=== PATIENT | female | born 2000 | race Caucasian/White ===

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

== ENCOUNTER 2022-06-27 17:43 | Emergency (ER) | payer OTHER ==
[2022-06-27] MEDS ORDERED: Tetracaine 0.5% PF 4 ML BOT ONE (18:49)
[2022-06-27] MEDS ORDERED: Fluorescein Opthalmic Strip ONE (18:49)
[2022-06-27] MEDS ORDERED: Erythromycin Base 0.5% Ophth Oint 3.5 gm Tube ONE (19:21)
== END 2022-06-27 19:40 | disposition home or self-care (01) ==
LOC: MADERS 17:43
DX: H10.9 Unspecified conjunctivitis (principal)
CPT/HCPCS: 99283

== ENCOUNTER 2022-08-08 14:42 | Emergency (ER) | payer OTHER | END 2022-08-08 15:01 | disposition home or self-care (01) | LOC: MADERS 14:42 | DX: L30.9 Dermatitis, unspecified (principal); F17.290 Nicotine dependence, other tobacco product, uncomplicated | CPT/HCPCS: 99282 ==

== ENCOUNTER 2022-12-27 12:27 | Emergency (ER) | payer OTHER ==
[2022-12-27] MEDS ORDERED: Ondansetron PF 4 MG/2 ML Vial ONE (13:06)
[2022-12-27] MEDS ORDERED: Sodium Chloride 0.9% 1,000 ML ONE (13:06)
[2022-12-27 13:09] LABS: #Basophils 0.1 thou/uL (0.0-0.2); #Eosinphils 0.1 thou/uL (0.0-0.7); #Lymphocytes 0.8 thou/uL (1.20-3.40); #Monocytes 0.2 thou/uL (0.11-0.59); #Neutrophils 9.3 thou/uL (1.40-6.50); %Basophils 0.6 % (0.0-1.0); %Eosinophils 0.5 % (0.0-10.0); %Lymphocytes 7.2 % (21.0-51.0); %Monocytes 2.3 % (0.0-10.0); %Neutrophils 89.4 % (42.0-75.0); Hematocrit 40.1 % (36.0-47.0); Hemoglobin 13.1 g/dL (12.0-16.0); Mean Corpuscular HGB CONC 32.6 g/dL (32.0-36.0); Mean Corpuscular Hemoglobin 28.5 pg (27.0-31.0); Mean Corpuscular Volume 87.4 fl (78.0-98.0); Mean Platelet Volume 8.6 fL (7.4-10.4); Platelet Count 307 10x3/uL (130-400); RBC Distribution Width 13.8 % (11.5-14.5); Red Blood Cell (RBC) Count 4.59 mill/uL (4.20-5.40); White Blood Cell (WBC) Count 10.4 10x3/uL (4.8-10.8)
[2022-12-27 13:17] LABS: Bilirubin Negative (Negative); Blood, Urine Negative (Negative); Glucose, Urine (Dipstick) Negative (Negative); Ketone, Urine 40 mg/dL (Negative); Leukocyte Trace (Negative); Nitrite Negative (Negative); Protein, Urine (Dipstick) Trace mg/dL (Neg-Trace); Specific Gravity, Urine 1.025 (1.005-1.030); Urobilinogen 0.2 mg/dL (Less than 2); pH, Urine 5.5 (5.0-9.0)
[2022-12-27 13:18] LABS: Clarity Slightly Cloudy (Clear); RBC/HPF 0-3 HPF (0-3)
[2022-12-27 13:19] LABS: Bacteria/HPF 1+ HPF (None Seen); CAUTI Indications for Culture Pelvic or flank pain
[2022-12-27 13:21] LABS: Urine Culture Reflex No No
[2022-12-27 13:28] LABS: ALT (SGPT) 13 U/L (8-55); AST (SGOT) 15 U/L (5-34); Albumin 4.6 g/dL (3.5-5.0); Alkaline Phosphatase 55 U/L (40-110); Anion Gap 13 mmol/L (10-20); BUN (Urea Nitrogen) 5 mg/dL (7.0-18.7); Bilirubin, Total 0.7 mg/dL (0.2-1.2); Calc. Creatinine Clearance 0 mL/min (70-130); Calcium 9.6 mg/dL (7.8-10.44); Carbon Dioxide 22 mmol/L (22-29); Chloride 102 mmol/L (98-107); Estimated GFR 127; Globulin 2.9 g/dL (2.4-3.5); Glucose 101 mg/dL (70-105); Magnesium 1.8 mg/dL (1.6-2.6); Potassium 3.4 mmol/L (3.5-5.1); Protein, Total 7.5 g/dL (6.0-8.3); Sodium 134 mmol/L (136-145)
== END 2022-12-27 15:20 | disposition home or self-care (01) ==
LOC: MADERS 12:27
DX: N83.11 Corpus luteum cyst of right ovary (principal); F17.290 Nicotine dependence, other tobacco product, uncomplicated
CPT/HCPCS: 76815; 80053; 81001; 83735; 84702; 85025; 96361; 96374; J2405; J7050

== ENCOUNTER 2023-10-02 15:11 | Emergency (ER) | payer MEDICAID ==
[2023-10-02] MEDS ORDERED: Fluorescein Opthalmic Strip ONE (16:15)
[2023-10-02] MEDS ORDERED: Proparacaine 0.5% Opth 15 ML BOT ONE (16:16)
== END 2023-10-02 16:50 | disposition home or self-care (01) ==
LOC: MADERS 15:11
DX: H10.9 Unspecified conjunctivitis (principal); F17.290 Nicotine dependence, other tobacco product, uncomplicated
CPT/HCPCS: 99282